=== PATIENT | female | born 1990 | race Two or more races ===

== ENCOUNTER 2016-12-15 11:07 | Emergency (ER) | payer SELFPAY ==
[2016-12-15] MEDS ORDERED: AMOXICILLIN TR/POT CLAVULANATE 500-125 MG TAB PO ONE (12:08)
[2016-12-15] MEDS ORDERED: HYDROCODONE/ACETAMINOPHEN 5-325 MG TABLET PO ONE (12:08)
[2016-12-15] MEDS ORDERED: DIPH/PERTUSS(ACELL)/TETANUS VAC/PF 0.5 ML SYR (>=10YO) IM ONE (12:08)
[2016-12-15] MEDS ORDERED: LIDOCAINE 1% INJ-PF (10 MG/ML) 30 ML SDV INJ ONE (12:15)
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
[2016-12-15 14:24] VITALS: BP 114/69
== END 2016-12-15 14:24 | disposition home or self-care (01) ==
LOC: ER 11:07
PROC: 0CQ0XZZ Repair Upper Lip, External Approach (ICD-10-PCS; principal; 2016-12-15)
DX: S01.511A Laceration without foreign body of lip, initial encounter (principal); S01.512A Laceration without foreign body of oral cavity, initial encounter; W50.0XXA Accidental hit or strike by another person, initial encounter; F17.200 Nicotine dependence, unspecified, uncomplicated
CPT/HCPCS: 99283; 90471; 90715; 12011; J3490

== ENCOUNTER 2017-03-09 15:56 | Emergency (ER) | payer SELFPAY ==
[2017-03-09 16:01] VITALS: BP 111/85
--- NOTE | 2017-03-09 16:10 | ER Document Report ---
ED GI/ - General Chief Complaint: Urinary Problem Stated Complaint: URINARY ISSUES Time Seen by Provider: 03/09/17 16:05 Mode of Arrival: Ambulatory Information source: Patient TRAVEL OUTSIDE OF THE [place] IN LAST 30 DAYS: No - HPI Patient complains to provider of: Dysuria, Vaginal discharge Onset: Other - 2 WEEKS Timing/Duration: Gradual, Persistent, Worse Quality of pain: Achy, Burning Severity at maximum: Moderate Severity in ED: Moderate Pain Level: 3 Location: Suprapubic, Pelvis Associated symptoms: Dysuria, Urinary frequency, Vaginal discharge Exacerbated by: Denies Relieved by: Denies Similar symptoms previously: Yes Recently seen / treated by doctor: No Notes: 03/09/17 16:11 Patient is a 26-year-old female presenting to the emergency room complaining of 2 week history of dysuria with urinary frequency and vaginal discharge consistent with UTI and bacterial vaginosis that she has had in the past, states that her significant other is uncircumcised and therefore she frequently gets these infections, denies being , no nausea, vomiting or diarrhea, no fever or chills - Related Data Allergies/Adverse Reactions: No Known Allergies Allergy (Verified 03/09/17 16:01) Past Medical History - General Information source: Patient - Social History Smoking Status: Unknown if Ever Smoked Family History: Reviewed & Not Pertinent Renal/ Medical History: Denies: Hx Peritoneal Dialysis - Immunizations Hx Diphtheria, Pertussis, Tetanus Vaccination: Yes - received 2010 Review of Systems - Review of Systems Constitutional: No symptoms reported EENT: No symptoms reported Cardiovascular: No symptoms reported Respiratory: No symptoms reported Gastrointestinal: No symptoms reported Genitourinary: See HPI Female Genitourinary: See HPI Musculoskeletal: No symptoms reported Skin: No symptoms reported Hematologic/Lymphatic: No symptoms reported Neurological/Psychological: No symptoms reported -: Yes All other systems reviewed and negative Physical Exam - Vital signs Vitals: Temp Pulse Resp BP Pulse Ox 98.8 F 94 16 111/85 99 03/09/17 16:00 03/09/17 16:00 03/09/17 16:00 03/09/17 16:00 03/09/17 16:00 - Notes Notes: - General General appearance: Appears well, Alert In distress: None - HEENT Head: Normocephalic, Atraumatic Eyes: Normal Conjunctiva: Normal Extraocular movements intact: Yes Eyelashes: Normal Pupils: PERRL - Respiratory Respiratory status: No respiratory distress - Cardiovascular Rhythm: Regular - Abdominal Inspection: Normal - Back Back: Normal - Extremities General upper extremity: Normal inspection General lower extremity: Normal inspection - Neurological Neuro grossly intact: Yes Orientation: AAOx4 [place] Coma Scale Eye Opening: Spontaneous [place] Coma Scale Verbal: Oriented [place] Coma Scale Motor: Obeys Commands [place] Coma Scale Total: 15 - Psychological Associated symptoms: Normal affect, Normal mood - Skin Skin Temperature: Warm Skin Moisture: Dry Skin Color: Normal Course - Re-evaluation Re-evalutation: 03/09/17 16:12 Patient symptoms are consistent with UTI and bacterial vaginosis which she has had in the past, I did offer to put her in a room work and do a pelvic exam and send a urine sample, however she declined and requested to just be treated for these symptoms because she has had these problems in the past and "I know my body", therefore patient was provided with a prescription for Keflex and Flagyl , advised to follow-up with her primary care provider or return if symptoms worsen, patient acknowledges understanding and agreement with this plan - Vital Signs Vital signs: Temp Pulse Resp BP Pulse Ox 98.8 F 94 16 111/85 99 03/09/17 16:00 03/09/17 16:00 03/09/17 16:00 03/09/17 16:00 03/09/17 16:00 Discharge - Discharge Clinical Impression: Bacterial vaginosis UTI (urinary tract infection) Qualifiers: Urinary tract infection type: site unspecified Hematuria presence: without hematuria Qualified Code(s): N39.0 - Urinary tract infection, site not specified Condition: Stable Disposition: HOME, SELF-CARE Instructions: Urinary Tract Infection ([facility]), Vaginosis, Bacterial ([facility]) Additional Instructions: Follow up with your primary care provider in one to 2 days. Return to the emergency room immediately if symptoms worsen or any additional concerns. Prescriptions: Cephalexin Monohydrate [Keflex 500 mg Capsule] 500 mg PO BID #20 capsule Fluconazole [Diflucan] 150 mg PO ONCE PRN #1 tablet PRN Reason: Metronidazole [Flagyl 500 mg Tablet] 500 mg PO TID #30 tablet
== END 2017-03-09 16:13 | disposition home or self-care (01) ==
LOC: ER 15:56
DX: N76.0 Acute vaginitis (principal); B96.89 Other specified bacterial agents as the cause of diseases classified elsewhere; N39.0 Urinary tract infection, site not specified; R39.198 Other difficulties with micturition; R30.0 Dysuria; R35.0 Frequency of micturition; N89.8 Other specified noninflammatory disorders of vagina
CPT/HCPCS: 99283

== ENCOUNTER 2017-03-24 21:54 | Emergency (ER) | payer SELFPAY ==
[2017-03-24] MEDS ORDERED: ONDANSETRON HCL INJ/PF 4 MG/2 ML SDV IV ONE (23:54)
[2017-03-24] MEDS ORDERED: NORMAL SALINE 1000 ML 1,000 ML IV ONE (23:54)
--- NOTE | 2017-03-24 23:56 | ER Document Report ---
ED GI/ - General Chief Complaint: Nausea/Vomiting/Diarrhea Stated Complaint: VOMITING,DIARRHEA Time Seen by Provider: 03/24/17 23:52 Notes: The patient is a 26-year-old female who presents with 10 hours of nausea, nonbloody, non-bilious vomiting and watery diarrhea. She said that she drank a lot of moonshine yesterday night before this started. Patient denies recent travel, fevers, abdominal pain, hematemesis, blood in stool, urinary symptoms, chest pain or shortness of breath. TRAVEL OUTSIDE OF THE [place] IN LAST 30 DAYS: No - Related Data Allergies/Adverse Reactions: No Known Allergies Allergy (Verified 03/24/17 22:05) Past Medical History - General Information source: Patient - Social History Smoking Status: Unknown if Ever Smoked Family History: Reviewed & Not Pertinent Patient has suicidal ideation: No Patient has homicidal ideation: No Renal/ Medical History: Denies: Hx Peritoneal Dialysis - Immunizations Hx Diphtheria, Pertussis, Tetanus Vaccination: Yes - received 2010 Review of Systems - Review of Systems Notes: REVIEW OF SYSTEMS: CONSTITUTIONAL: -fevers, -chills EENT: -eye pain, -difficulty swallowing, -nasal congestion CARDIOVASCULAR:-chest pain, -syncope. RESPIRATORY: -cough, -SOB GASTROINTESTINAL: -abdominal pain, +nausea, +vomiting, +diarrhea GENITOURINARY: -dysuria, -hematuria MUSCULOSKELETAL: -back pain, -neck pain SKIN: -rash or skin lesions. HEMATOLOGIC: -easy bruising or bleeding. LYMPHATIC: -swollen, enlarged glands. NEUROLOGICAL: -altered mental status or loss of consciousness, -headache, - neurologic symptoms PSYCHIATRIC: -anxiety, -depression. ALL OTHER SYSTEMS REVIEWED AND NEGATIVE. Physical Exam - Vital signs Vitals: Temp Pulse Resp BP Pulse Ox 98.1 F 95 20 113/69 100 03/24/17 22:03 03/24/17 22:03 03/24/17 22:03 03/24/17 22:03 03/24/17 22:03 - Notes Notes: PHYSICAL EXAMINATION: GENERAL: Well-appearing, well-nourished and in no acute distress. HEAD: Atraumatic, normocephalic. EYES: Pupils equal round and reactive to light, extraocular movements intact, sclera anicteric, conjunctiva are normal. ENT: nares patent, oropharynx clear without exudates. Moist mucous membranes. NECK: Normal range of motion, supple without lymphadenopathy LUNGS: Breath sounds clear to auscultation bilaterally and equal. No wheezes rales or rhonchi. HEART: Regular rate and rhythm without murmurs ABDOMEN: Soft, nontender, normoactive bowel sounds. No guarding, no rebound. No masses appreciated. EXTREMITIES: Normal range of motion, no pitting or edema. No cyanosis. NEUROLOGICAL: Cranial nerves grossly intact. Normal speech, normal gait. Normal sensory and motor exams. PSYCH: Normal mood, normal affect. SKIN: Warm, Dry, normal turgor, no rashes or lesions noted. Course - Re-evaluation Re-evalutation: Patient with absolutely no abdominal tenderness. She is drinking fluids in the emergency room after Zofran without nausea or vomiting. No other episodes of diarrhea while in the ER. Her labs and urine are unremarkable. Will send patient home with Zofran instructions to keep hydrated. - Vital Signs Vital signs: Temp Pulse Resp BP Pulse Ox 98.1 F 95 20 113/69 100 03/24/17 22:03 03/24/17 22:03 03/24/17 22:03 03/24/17 22:03 03/24/17 22:03 - Laboratory Result Diagrams: 03/24/17 23:55 03/24/17 23:55 Laboratory results interpreted by me: 03/24/17 03/24/17 23:55 23:55 Hgb 11.4 L Hct 35.6 L MCH 25.5 L MCHC 31.9 L RDW 18.3 H Seg Neutrophils % 87.6 H Lymphocytes % 8.1 L Sodium 146.2 H Chloride 110 H Discharge - Discharge Clinical Impression: Nausea, vomiting and diarrhea Condition: Stable Disposition: HOME, SELF-CARE Additional Instructions: VOMITING: Vomiting (or nausea without vomiting) can be caused by many other different problems. It can mean that something's wrong with the stomach, such as ulcers or inflammation or the intestinal tract, such as appendicitis. But it can also be a symptom of a problem that has nothing to do with the stomach or intestines. Vomiting is common with severe headaches, earaches, tonsillitis, and kidney infections, etc. We see it with pneumonia or heart attacks. Drugs can cause nausea and vomiting. Many abdominal problems cause vomiting; for example, gallstones, kidney stones, pancreatitis, and intestinal obstruction ( blocked bowels). In most cases, curing the vomiting depends on fixing the problem that caused it. For temporary relief, we may use an anti-nausea medicine. For home use, we can prescribe suppositories, chewable pills, pills that dissolve in the mouth, or liquid anti-nausea drugs. If the vomiting seems to be caused by a problem in the stomach, acid-suppressing drugs may be prescribed as well. It's important to avoid dehydration. Sip small amounts of clear liquids ( soft drinks, tea, broth, etc) . Try to take fluids frequently even if you are vomiting to prevent dehydration. Take increasing amounts of fluid and when liquids are being consumed successfully, advance to small amounts of bland food (toast, soups, mashed potatoes, etc.) until you are able to resume a regular diet. Avoid aspirin, tobacco, and alcohol. If the vomiting worsens, if the problem that's making you vomit worsens, or if there's evidence of bleeding in the stomach (such as black, tarry stool, or bloody or black vomit), you should return immediately. Also, return if abdominal pain worsens or becomes localized to one area or you develop high fever. Call your doctor if you aren't improved in 24 hours. DIARRHEA, NON-SPECIFIC: Diarrhea means frequent, watery stools. There are many causes. Any problem that keeps the intestinal tract from absorbing water from the stool can lead to diarrhea. A sudden new diarrhea problem is usually caused by a virus, food sensitivity, toxic bacteria, or drugs. In this case, we expect the problem to go away soon. Testing is done only if you seem seriously ill from the diarrhea. If you have chronic diarrhea, or diarrhea that keeps coming back, we need to find out why. Chronic diarrhea can be due to inflammation of the bowels such as Crohn's disease or ulcerative colitis, food sensitivity such as intolerance to lactose or wheat protein, irritable bowel syndrome, and other problems. If your diarrhea is a significant problem but it's not clear why you have it, we' ll refer you to a specialist for further testing. During an episode of diarrhea, drink small amounts (two to six ounces) of clear liquids (soft drinks, sport drinks, herb teas, broth, etc). Take fluids frequently to prevent dehydration. It's usually not a problem to take mild anti- diarrhea medication such as Kaopectate or Pepto-Bismol. As the diarrhea eases, advance to small amounts of bland food (mashed potato, toast) for 24 hours. Call the physician if blood appears in your vomit or stool, if vomiting lasts longer than 24 hours, if the abdominal pain worsens or becomes localized to one area, if you develop high fever, or if you become lightheaded and weak. VIRAL SYNDROME: The physician has diagnosed a viral infection. Viruses not only cause "colds," but can cause many different symptoms including generalized aching, fever, headache, cough, diarrhea, nausea, vomiting, and fatigue. The treatment, for the most part, is simply relief of symptoms. This means that antibiotics are usually not given. Rest, fluids, pain medications and, occasionally, medication for the specific symptoms that are most bothersome will be prescribed. Use good handwashing to avoid passing the virus to others. Shared toys should be cleaned with disinfectant. Clean the toilets, sinks, and counter surfaces in bathrooms. Launder clothing in hot water. Contact the physician if you develop any new or unusual symptoms such as severe headache, stiff neck, high fever, chest pain, productive cough, or shortness of breath. You should be rechecked if you don't see marked improvement within seven to 10 days. ANTINAUSEA MEDICATION: You have been given a medication to suppress nausea and vomiting. This type of medication can be given as a shot, pill, or suppository. It will usually last for many hours. Pills and shots usually last six to eight hours. For the typical illness, only one or two doses of the medication may be necessary. Mild lightheadedness may occur. This type of medicine can cause drowsiness. Do not drive or operate dangerous machinery while under its influence. Do not mix with alcohol. See your doctor at once if you have muscle spasms or tightness, or uncontrollable motions (particularly of the neck, mouth, or jaw). Persistent vomiting or severe lightheadedness should also be evaluated by the physician. FOLLOW-UP CARE: If you have been referred to a physician for follow-up care, call the physician s office for an appointment as you were instructed or within the next two days. If you experience worsening or a significant change in your symptoms, notify the physician immediately or return to the Emergency Department at any time for re-evaluation. Prescriptions: Ondansetron [Zofran Odt 4 mg Tablet] 1 - 2 tab PO Q4H PRN #15 tab.rapdis PRN Reason: For Nausea/Vomiting
[2017-03-25] MEDS ORDERED: ONDANSETRON 4 MG TAB.RAPDIS PO ONE (00:04)
[2017-03-25 00:18] LABS: ABSOLUTE LYMPHOCYTES (AUTO) 0.7 10^3/uL (0.5-4.7); ABSOLUTE MONOCYTES (AUTO) 0.4 10^3/uL (0.1-1.4); BASOPHILS % (AUTO) 0.4 % (0-2); HEMATOCRIT 35.6 % (36.0-47.0); HEMOGLOBIN 11.4 g/dL (12.0-15.5); HGB HCT DIFFERENCE -1.4; LYMPHOCYTES % (AUTO) 8.1 % (13-45); MEAN CORPUSCULAR HEMOGLOBIN 25.5 pg (27.0-33.4); MEAN CORPUSCULAR HGB CONC 31.9 g/dL (32.0-36.0); MEAN CORPUSCULAR VOLUME 80 fl (80-97); MONOCYTES % (AUTO) 3.9 % (3-13); RED BLOOD COUNT 4.47 10^6/uL (3.72-5.28); RED CELL DISTRIBUTION WIDTH 18.3 % (11.5-14.0); SEGMENTED NEUTROPHILS % (AUTO) 87.6 % (42-78); WHITE BLOOD COUNT 9.2 10^3/uL (4.0-10.5)
[2017-03-25 00:25] LABS: ALANINE AMINOTRANSFERASE 27 U/L (9-52); ALBUMIN 4.4 g/dL (3.5-5.0); ALKALINE PHOSPHATASE 58 U/L (38-126); ANION GAP 13 (5-19); ASPARTATE AMINO TRANSFERASE 29 U/L (14-36); BILIRUBIN,DIRECT 0.3 mg/dL (0.0-0.4); BILIRUBIN,TOTAL 0.4 mg/dL (0.2-1.3); BLOOD UREA NITROGEN 8 mg/dL (7-20); CALCIUM 9.9 mg/dL (8.4-10.2); CARBON DIOXIDE 23 mmol/L (22-30); CHLORIDE 110 mmol/L (98-107); CREATININE RESULT 0.66 mg/dL (0.52-1.25); GLUCOSE 97 mg/dL (75-110); SODIUM 146.2 mmol/L (137-145); TOTAL PROTEIN 7.8 g/dL (6.3-8.2)
[2017-03-25 01:34] VITALS: BP 117/75
[2017-03-25 01:45] LABS: URINE BARBITURATES SCREEN NEGATIVE; URINE METHADONE SCREEN NEGATIVE; URINE OPIATES LOW NEGATIVE; URINE PHENCYCLIDINE SCREEN NEGATIVE
== END 2017-03-25 01:34 | disposition home or self-care (01) ==
LOC: ER 21:54
DX: R11.2 Nausea with vomiting, unspecified (principal); R19.7 Diarrhea, unspecified
CPT/HCPCS: 99284; 36415; 83690; 85025; 81025; 80053; 80307; S0119

== ENCOUNTER 2017-05-26 22:07 | Emergency (ER) | payer SELFPAY ==
--- NOTE | 2017-05-26 23:23 | ER Document Report ---
ED GI/ - General Chief Complaint: Pelvic Pain Stated Complaint: PELVIC PAIN Time Seen by Provider: 05/26/17 23:16 Notes: The patient is a 26-year-old female who presents with 15 days of menstrual bleeding and cramping. She has had this multiple times in the past. She denies syncope, urinary symptoms, abdominal pain, diarrhea, constipation or . TRAVEL OUTSIDE OF THE [place] IN LAST 30 DAYS: No - Related Data Allergies/Adverse Reactions: No Known Allergies Allergy (Verified 03/24/17 22:05) Past Medical History - General Information source: Patient - Social History Smoking Status: Unknown if Ever Smoked Drug Abuse: Cocaine Family History: Reviewed & Not Pertinent Patient has suicidal ideation: No Patient has homicidal ideation: No Renal/ Medical History: Denies: Hx Peritoneal Dialysis - Immunizations Hx Diphtheria, Pertussis, Tetanus Vaccination: Yes - received 2010 Review of Systems - Review of Systems Notes: REVIEW OF SYSTEMS: CONSTITUTIONAL: -fevers, -chills EENT: -eye pain, -difficulty swallowing, -nasal congestion CARDIOVASCULAR:-chest pain, -syncope. RESPIRATORY: -cough, -SOB GASTROINTESTINAL: -abdominal pain, - nausea, -vomiting, -diarrhea GENITOURINARY: -dysuria, -hematuria, +vaginal bleeding MUSCULOSKELETAL: -back pain, -neck pain SKIN: -rash or skin lesions. HEMATOLOGIC: -easy bruising or bleeding. LYMPHATIC: -swollen, enlarged glands. NEUROLOGICAL: -altered mental status or loss of consciousness, -headache, - neurologic symptoms PSYCHIATRIC: -anxiety, -depression. ALL OTHER SYSTEMS REVIEWED AND NEGATIVE. Physical Exam - Vital signs Vitals: Temp Pulse Resp BP Pulse Ox 99.0 F 88 20 113/73 100 05/26/17 22:27 05/26/17 22:27 05/26/17 22:27 05/26/17 22:27 05/26/17 22:27 - Notes Notes: PHYSICAL EXAMINATION: GENERAL: Well-appearing, well-nourished and in no acute distress. HEAD: Atraumatic, normocephalic. EYES: Pupils equal round and reactive to light, extraocular movements intact, sclera anicteric, conjunctiva are normal. ENT: nares patent, oropharynx clear without exudates. Moist mucous membranes. NECK: Normal range of motion, supple without lymphadenopathy LUNGS: Breath sounds clear to auscultation bilaterally and equal. No wheezes rales or rhonchi. HEART: Regular rate and rhythm without murmurs ABDOMEN: Soft, nontender, normoactive bowel sounds. No guarding, no rebound. No masses appreciated. : No active vaginal bleeding. Closed cervical os. EXTREMITIES: Normal range of motion, no pitting or edema. No cyanosis. NEUROLOGICAL: Cranial nerves grossly intact. Normal speech, normal gait. Normal sensory and motor exams. PSYCH: Normal mood, normal affect. SKIN: Warm, Dry, normal turgor, no rashes or lesions noted. Course - Re-evaluation Re-evalutation: Patient is hemodynamically stable. No active bleeding on exam. She is not and not anemic. Will discharge patient home with follow-up at gynecology. - Vital Signs Vital signs: Temp Pulse Resp BP Pulse Ox 99.0 F 88 20 113/73 100 05/26/17 22:27 05/26/17 22:27 05/26/17 22:27 05/26/17 22:27 05/26/17 22:27 - Laboratory Laboratory results interpreted by me: 05/26/17 23:40 Urine Blood MODERATE H Ur Leukocyte Esterase TRACE H Discharge - Discharge Clinical Impression: Vaginal bleeding Condition: Stable Disposition: HOME, SELF-CARE Additional Instructions: VAGINAL BLEEDING: You are having an episode of abnormal bleeding. Causes of abnormal vaginal bleeding can include miscarriage or tubal , tumors such as cancer or benign fibroids, medication effects, or hormone imbalance. Testing can eliminate unsuspected , tumors, or infection as a cause. "Dysfunctional uterine bleeding" is due to hormone imbalance, and is especially common at times when the normal cycle is disturbed -- whether by recent , use of control pills or hormones, or impending menopause. If the bleeding is innocent, most commonly a short course of hormones is given to restore the uterus to normal. Sometimes, the normal menstrual cycle corrects itself naturally. Sometimes , brief hormone therapy, or even a D&C is required. Your physician will advise you. Treatment for anemia may be required if bleeding is severe. You should rest and avoid intercourse until the bleeding is controlled. Call the doctor or return for re-examination if you feel faint, have increasing pain, or have a major increase in the amount of bleeding. NORMAL EXAM AND WORKUP: At this time, except for vaginal bleeding, your examination and workup show no significant abnormality. No significant abnormal physical findings were noted. All laboratory, EKG, and imaging (x-ray, CT scans, ultrasound) studies that were ordered show no significant abnormality. Although your examination and all studies that were ordered showed no significant abnormal finding, there are no examinations and no studies that are 100% accurate. There is always the possibility that some abnormality could exist and not be detected with physical examination or within the limits and capabilities of laboratory and other studies. You should return or follow up as you were instructed on your visit today for further evaluation if your symptoms do not resolve. FOLLOW-UP CARE: If you have been referred to a physician for follow-up care, call the physician s office for an appointment as you were instructed or within the next two days. If you experience worsening or a significant change in your symptoms (very heavy bleeding with large clots of blood, passage of tissue, more severe abdominal / pelvic pain or cramping, feeling faint or severe weakness, fever, etc.), notify the physician immediately or return to the Emergency Department at any time for re-evaluation. OBSTETRIC-GYNECOLOGIC (OB-SALES CORRESPONDENT) PHYSICIANS [facility] [place]: [facility] [address] [place], [place] [phone] [facility] [address], [place] [phone] Referrals: CRYS RODRIGUEZ, [EWA COSTA] - Follow up as needed
[2017-05-26 23:57] LABS: APPEARANCE,URINE CLEAR; BILIRUBIN,URINE NEGATIVE (NEGATIVE); GLUCOSE, URINE NEGATIVE (NEGATIVE); KETONES,URINE NEGATIVE (NEGATIVE); LEUKOCYTE ESTERASE,URINE TRACE (NEGATIVE); NITRITE,URINE NEGATIVE (NEGATIVE); PROTEIN,URINE NEGATIVE (NEGATIVE); URINE SPECIFIC GRAVITY 1.023; UROBILINOGEN,URINE NEGATIVE mg/dL (<2.0)
[2017-05-27 00:19] LABS: ABSOLUTE EOSINOPHILS # (AUTO) 0.1 10^3/uL (0.0-0.6); ABSOLUTE LYMPHOCYTES (AUTO) 2.4 10^3/uL (0.5-4.7); ABSOLUTE MONOCYTES (AUTO) 0.6 10^3/uL (0.1-1.4); ABSOLUTE NEUT (AUTO) 3.7 10^3/uL (1.7-8.2); BASOPHILS % (AUTO) 0.5 % (0-2); EOSINOPHILS % (AUTO) 0.9 % (0-6); HEMATOCRIT 36.8 % (36.0-47.0); HEMOGLOBIN 12.1 g/dL (12.0-15.5); HGB HCT DIFFERENCE -0.5; LYMPHOCYTES % (AUTO) 35.3 % (13-45); MEAN CORPUSCULAR HGB CONC 32.8 g/dL (32.0-36.0); MEAN CORPUSCULAR VOLUME 79 fl (80-97); MONOCYTES % (AUTO) 9.2 % (3-13); RED BLOOD COUNT 4.65 10^6/uL (3.72-5.28); RED CELL DISTRIBUTION WIDTH 16.4 % (11.5-14.0); SEGMENTED NEUTROPHILS % (AUTO) 54.1 % (42-78); WHITE BLOOD COUNT 6.9 10^3/uL (4.0-10.5)
[2017-05-27 00:37] VITALS: BP 110/69
== END 2017-05-27 00:16 | disposition home or self-care (01) ==
LOC: ER 22:07
DX: N93.8 Other specified abnormal uterine and vaginal bleeding (principal); R10.2 Pelvic and perineal pain
CPT/HCPCS: 36415; 81001; 81025; 85025; 99284

== ENCOUNTER 2018-05-17 18:50 | Emergency (ER) | payer SELFPAY ==
--- NOTE | 2018-05-17 19:06 | ER Document Report ---
ED Medical Screen (RME) - General Chief Complaint: Vertigo Stated Complaint: RINGING IN EAR Time Seen by Provider: 05/17/18 19:04 Mode of Arrival: Ambulatory Information source: Patient TRAVEL OUTSIDE OF THE [place] IN LAST 30 DAYS: No - HPI Patient complains to provider of: tinnitus; pelvic cramping Onset: Other - Pt is G4, approx 6 wks , with c/o pelvic cramps and tinnitus in L ear - Related Data Allergies/Adverse Reactions: No Known Allergies Allergy (Verified 03/24/17 22:05) Past Medical History Renal/ Medical History: Denies: Hx Peritoneal Dialysis - Immunizations Hx Diphtheria, Pertussis, Tetanus Vaccination: Yes - received 2010 Physical Exam - Vital signs Vitals: Temp Pulse Resp BP Pulse Ox 98.5 F 89 18 115/64 100 05/17/18 18:58 05/17/18 18:58 05/17/18 18:58 05/17/18 18:58 05/17/18 18:58 Course - Vital Signs Vital signs: Temp Pulse Resp BP Pulse Ox 98.5 F 89 18 115/64 100 05/17/18 18:58 05/17/18 18:58 05/17/18 18:58 05/17/18 18:58 05/17/18 18:58
--- NOTE | 2018-05-17 19:43 | RADIOLOGY REPORT (SQ) ---
EXAM DESCRIPTION: U/S OB TRANSVAG W/DOPPLER COMPLETED DATE/TIME: 05/17/2018 7:32 pm REASON FOR STUDY: pelvic pain; COMPARISON: None. TECHNIQUE: Transvaginal static and realtime grayscale images acquired of the pelvis. Additional razia cted spectral and color Doppler images recorded. All images stored on PACs. bHCG: Not available. CLINICAL DATES: 6 week 2 day. LIMITATIONS: None. FINDINGS: FETUS: Single Living intrauterine . ULTRASOUND EGA: 6 week 6 day. ULTRASOUND PAM: 01/04/2019. EFW: Not applicable less than 20 weeks. CRL: 0.83 cm. FHR: 132 beats per minute. SURVEY: No visualized anomalies. AMNIOTIC FLUID: Adequate amount. PLACENTA: Not yet developed due to early gestation. SUBCHORIONIC BLEED: Yes. SIZE OF BLEED: 0.7 x 0.8 x 1.7 cm. UTERUS: No masses. No anomalies. CERVICAL LENGTH: 2.4 cm. Closed. RIGHT ADNEXA: Ovary not identified due to poor acoustical window. No adnexal free fluid. No adnexal masses. LEFT ADNEXA: Ovary not identified due to poor acoustical window. No adnexal free fluid. No adnexal masses. FREE FLUID: None. OTHER: No other significant finding. IMPRESSION: LIVING INTRAUTERINE . EGA 6 WEEK 6 DAY. SUBCHORIONIC BLEED. Trimester of : First - 0 to 13 weeks. TECHNICAL DOCUMENTATION: JOB ID: [id number] [employer]- All Rights Reserved rev Reading location - IP/workstation name: [email or web address]
[2018-05-17 20:01] LABS: ABSOLUTE EOSINOPHILS # (AUTO) 0.1 10^3/uL (0.0-0.6); ABSOLUTE LYMPHOCYTES (AUTO) 2.2 10^3/uL (0.5-4.7); ABSOLUTE MONOCYTES (AUTO) 0.8 10^3/uL (0.1-1.4); ABSOLUTE NEUT (AUTO) 4.1 10^3/uL (1.7-8.2); BASOPHILS % (AUTO) 0.4 % (0-2); EOSINOPHILS % (AUTO) 0.7 % (0-6); HEMATOCRIT 32.9 % (36.0-47.0); HEMOGLOBIN 11.1 g/dL (12.0-15.5); LYMPHOCYTES % (AUTO) 30.9 % (13-45); MEAN CORPUSCULAR HEMOGLOBIN 25.8 pg (27.0-33.4); MEAN CORPUSCULAR HGB CONC 33.7 g/dL (32.0-36.0); MEAN CORPUSCULAR VOLUME 77 fl (80-97); MONOCYTES % (AUTO) 10.5 % (3-13); PLATELET COUNT 230 10^3/uL (150-450); RED CELL DISTRIBUTION WIDTH 16.1 % (11.5-14.0); SEGMENTED NEUTROPHILS % (AUTO) 57.5 % (42-78); TOTAL CELLS COUNTED % (AUTO) 100 %; WHITE BLOOD COUNT 7.2 10^3/uL (4.0-10.5)
[2018-05-17 20:10] LABS: ALANINE AMINOTRANSFERASE 23 U/L (9-52); ALBUMIN 4.2 g/dL (3.5-5.0); ALKALINE PHOSPHATASE 46 U/L (38-126); ANION GAP 13 (5-19); ASPARTATE AMINO TRANSFERASE 20 U/L (14-36); BILIRUBIN,DIRECT 0.1 mg/dL (0.0-0.4); BILIRUBIN,TOTAL 0.4 mg/dL (0.2-1.3); BLOOD UREA NITROGEN 9 mg/dL (7-20); CALCIUM 9.7 mg/dL (8.4-10.2); CARBON DIOXIDE 24 mmol/L (22-30); CHLORIDE 102 mmol/L (98-107); GLUCOSE 78 mg/dL (75-110); POTASSIUM 3.9 mmol/L (3.6-5.0); SODIUM 138.6 mmol/L (137-145); TOTAL PROTEIN 7.6 g/dL (6.3-8.2)
[2018-05-17 21:06] LABS: APPEARANCE,URINE CLEAR; BILIRUBIN,URINE NEGATIVE (NEGATIVE); COLOR,URINE STRAW; GLUCOSE, URINE NEGATIVE (NEGATIVE); KETONES,URINE NEGATIVE (NEGATIVE); LEUKOCYTE ESTERASE,URINE TRACE (NEGATIVE); NITRITE,URINE NEGATIVE (NEGATIVE); PROTEIN,URINE NEGATIVE (NEGATIVE); URINE SPECIFIC GRAVITY 1.009; UROBILINOGEN,URINE NEGATIVE mg/dL (<2.0)
--- NOTE | 2018-05-17 21:16 | ER Document Report ---
ED General - General Chief Complaint: Vertigo Stated Complaint: RINGING IN EAR Time Seen by Provider: 05/17/18 19:04 Mode of Arrival: Ambulatory Notes: Patient is a 27-year-old female presenting to the emergency department complaining of suprapubic abdominal pain and left ear ringing. Patient states since after hollowing she has had intermittent in the left ear.. Patient states at times she feels like her ear is clogged and she cannot hear anything out of it. Patient voices no complaints about the right ear. Patient denies URI symptoms or fever. Patient states she does have suprapubic abdominal pain and intermittent dysuria. Patient denies any vaginal bleeding or vaginal discharge at this time. Patient states she just found out she was last week. Patient is not taking any vitamins. Past medical history: Anemia Medications: None Allergies: None Surgical history: None patient denies cigarette smoking, illicit drug use, EtOH use. TRAVEL OUTSIDE OF THE [place] IN LAST 30 DAYS: No - Related Data Allergies/Adverse Reactions: No Known Allergies Allergy (Verified 03/24/17 22:05) Past Medical History - General Information source: Patient - Social History Smoking Status: Former Smoker Chew tobacco use (# tins/day): No Frequency of alcohol use: None Family History: Reviewed & Not Pertinent Patient has suicidal ideation: No Patient has homicidal ideation: No Pulmonary Medical History: Reports: Hx Bronchitis Renal/ Medical History: Denies: Hx Peritoneal Dialysis - Immunizations Hx Diphtheria, Pertussis, Tetanus Vaccination: Yes - received 2010 Review of Systems - Review of Systems Constitutional: No symptoms reported EENT: See HPI Cardiovascular: No symptoms reported Respiratory: No symptoms reported Gastrointestinal: See HPI Genitourinary: See HPI Female Genitourinary: See HPI Musculoskeletal: No symptoms reported Skin: No symptoms reported Hematologic/Lymphatic: No symptoms reported Neurological/Psychological: No symptoms reported Physical Exam - Vital signs Vitals: Temp Pulse Resp BP Pulse Ox 98.5 F 89 18 115/64 100 05/17/18 18:58 05/17/18 18:58 05/17/18 18:58 05/17/18 18:58 05/17/18 18:58 - Notes Notes: GENERAL: Alert, interacts well. No acute distress. HEAD: Normocephalic, atraumatic. EYES: Pupils equal, round, and reactive to light. Extraocular movements intact. ENT: Oral mucosa moist, tongue midline. Nares patent, TM's intact right, cerumen impaction left canal. NECK: Full range of motion. Supple. Trachea midline. LUNGS: Clear to auscultation bilaterally, no wheezes, rales, or rhonchi. No respiratory distress. HEART: Regular rate and rhythm. No murmur ABDOMEN: Soft, non-tender. Non-distended. Bowel sounds present in all 4 quadrants. Minor suprapubic tenderness. EXTREMITIES: Moves all 4 extremities spontaneously. No edema, normal radial and dorsalis pedis pulses bilaterally. No cyanosis. BACK: no cervical, thoracic, lumbar midline tenderness. No saddle anesthesia, normal distal neurovascular exam. NEUROLOGICAL: Alert and oriented x3. Normal speech. cranial nerves II through XII grossly intact. PSYCH: Normal affect, normal mood. SKIN: Warm, dry, normal turgor. No rashes or lesions noted. Course - Re-evaluation Re-evalutation: Discussed with patient at bedside need to use of Debrox for cerumen impaction probably likely cause of tinnitus. Also discussed ultrasound results with patient. Discussed urinary tract infection diagnosis. Will treat with antibiotics. Discussed need to follow-up with primary care and [facility]. Return precautions discussed - Vital Signs Vital signs: Temp Pulse Resp BP Pulse Ox 98.6 F 80 15 125/76 98 05/17/18 22:10 05/17/18 22:10 05/17/18 22:10 05/17/18 22:10 05/17/18 22:10 - Laboratory Result Diagrams: 05/17/18 19:45 05/17/18 19:45 Laboratory results interpreted by me: 05/17/18 05/17/18 05/17/18 19:45 19:45 20:35 Hgb 11.1 L Hct 32.9 L MCV 77 L MCH 25.8 L RDW 16.1 H Beta HCG, Quant 29420.00 H Ur Leukocyte Esterase TRACE H Urine Ascorbic Acid 20 H Discharge - Discharge Clinical Impression: Urinary tract infection Qualifiers: Urinary tract infection type: acute cystitis Hematuria presence: without hematuria Qualified Code(s): N30.00 - Acute cystitis without hematuria Subchorionic bleed Qualifiers: Fetus number: single or unspecified fetus Trimester: first trimester Qualified Code(s): O41.8X10 - Other specified disorders of amniotic fluid and membranes, first trimester, not applicable or unspecified Qualifiers: Weeks of gestation: less than 8 weeks Qualified Code(s): Z3A.01 - Less than 8 weeks gestation of Cerumen impaction Qualifiers: Laterality: left Qualified Code(s): H61.22 - Impacted cerumen, left ear Condition: Stable Disposition: HOME, SELF-CARE Instructions: Cephalexin ([facility]), Urinary Tract Infection ([facility]) Additional Instructions: As we discussed you have been seen and treated in the emergency department for a urinary tract infection. Urinary tract infections in can potentially cause risk which is why I am treating him with antibiotics. Also as we discussed you have is called a subchorionic bleed on her ultrasound. Please partake in pelvic rest until you follow-up with [facility]. Phone numbers are given in this paperwork. Please return to the emergency room should you develop vaginal bleeding, abdominal pain, fever or any worsening symptoms. For the laxatives in your left ear you can buy something [id number] called Debrox. Use as instructed via the box. Prescriptions: Cephalexin Monohydrate [Keflex 500 mg Capsule] 500 mg PO BID 7 Days #14 capsule Referrals: YAIMA LEVINE MD [INSURANCE SALESPERSON] - Follow up as needed
[2018-05-17 22:53] VITALS: BP 125/76
== END 2018-05-17 22:10 | disposition home or self-care (01) ==
LOC: ER 18:50
DX: O26.891 Other specified pregnancy related conditions, first trimester (principal); H61.22 Impacted cerumen, left ear; H93.12 Tinnitus, left ear; O23.11 Infections of bladder in pregnancy, first trimester; O20.8 Other hemorrhage in early pregnancy; Z3A.01 Less than 8 weeks gestation of pregnancy
CPT/HCPCS: 36415; 76817; 80053; 81001; 84702; 85025; 87086; 87088; 87186; 93976; 99284

== ENCOUNTER 2018-07-24 09:21 | Emergency (ER) | payer MEDICAID ==
[2018-07-24 09:50] VITALS: BP 108/68
--- NOTE | 2018-07-24 10:23 | ER Document Report ---
ED Medical Screen (RME) - General Chief Complaint: Anxiety Stated Complaint: POSSIBLE ANXIETY Time Seen by Provider: 07/24/18 10:19 Notes: 27 years old female , presents today with 17 weeks and abdominal cramps. Feeling anxious had a rapid heartbeat last night. Which has subsided. States undergoing a lot of stress. No suicidal or homicidal ideation. TRAVEL OUTSIDE OF THE [place] IN LAST 30 DAYS: No - Related Data Allergies/Adverse Reactions: No Known Allergies Allergy (Verified 07/24/18 09:23) Past Medical History Pulmonary Medical History: Reports: Hx Bronchitis Renal/ Medical History: Denies: Hx Peritoneal Dialysis - Immunizations Hx Diphtheria, Pertussis, Tetanus Vaccination: Yes - received 2010 Physical Exam - Vital signs Vitals: Temp Pulse Resp BP Pulse Ox 98.7 F 97 16 108/68 100 07/24/18 09:49 07/24/18 09:49 07/24/18 09:49 07/24/18 09:49 07/24/18 09:49 Course - Vital Signs Vital signs: Temp Pulse Resp BP Pulse Ox 98.7 F 97 16 108/68 100 07/24/18 09:49 07/24/18 09:49 07/24/18 09:49 07/24/18 09:49 07/24/18 09:49 Doctor's Discharge - Discharge Instructions: Anxiety ([facility])
--- NOTE | 2018-07-24 11:47 | PSYCHOLOGICAL NOTE ---
Psych Note - Psych Note Date seen by psych provider: 07/24/18 Time seen by psych provider: 11:15 Psych Note: Reason for Consult: anxiety 27 years old female presents today with 17 weeks with abdominal cramps. Feeling anxious had a rapid heartbeat last night. Patient disclosed that her friend brought her to [facility] ED because she was having pain in her chest and abdomen and really bad anxiety. She reports that last night she had a panic attack that lasted 3 hours; "I was trying everything even taking a bath and nothing seemed to call me down." She confirms she is no longer feeling anxious however was hoping to ensure that it does not happen again. She reports that she was on medication approximately 10 years ago and remembers only Ambien and Depakote however cannot remember any other medication or amounts. She confirms she is currently 17 weeks and has an appointment tomorrow with the health department. She reports that she was just granted Medicaid so will be setting up providers. Patient is alert and orientated to person, place, time and circumstance. Mood is euthymic with congruent affect. Patient denies suicidal and homicidal ideation. Delusions are absent behaviors congruent with an intact reality based presentation i.e. organized and linear thought process. Eye contact is well- maintained. Conversational speech is within normal rate, tone and prosody. Intellectual abilities appear to be within the average range. Attention and concentration are good. Insight, judgment, impulse control are good. No medication recommendations at this time 300.00 (F41.9) unspecified anxiety disorder per history provided by patient Impression\\plan: Patient is cleared from acute psychiatric services. Patient discloses having a panic attack last night that last 3 hours. She confirms that she has been on medication in the past however has not been on medication for the last 10 years. Clinician provided psychoeducation. Patient has an upcoming appointment and confirms she will be requesting a referral for mental health and OBGyn. Patient was provided local resource list of area providers including mobile crisis contact information. Dr. Dixon was consulted on the care and management of this patient; attending physician is in agreement with recommendations and disposition.
--- NOTE | 2018-07-24 12:14 | ER Document Report ---
ED General - General Chief Complaint: Anxiety Stated Complaint: POSSIBLE ANXIETY Time Seen by Provider: 07/24/18 10:19 Mode of Arrival: Ambulatory Information source: Patient Notes: Patient presents to the emergency department with complaints of abdominal cramps and feeling anxious. Also reports she had a rapid heartbeat last night. Denies rapid heartbeat today. Reports she is under a lot of stress denies suicidal or homicidal eye deviation. Patient is . Denies fever vomiting diarrhea. Denies vaginal discharge. Denies vaginal bleeding. Patient has not had any type of care TRAVEL OUTSIDE OF THE [place] IN LAST 30 DAYS: No - HPI Onset: Yesterday Onset/Duration: Persistent Quality of pain: No pain Associated symptoms: None Exacerbated by: Denies Relieved by: Denies Similar symptoms previously: No Recently seen / treated by doctor: No - Related Data Allergies/Adverse Reactions: No Known Allergies Allergy (Verified 07/24/18 09:23) Past Medical History - General Information source: Patient Last Menstrual Period: 17 weeks preg - Social History Smoking Status: Never Smoker Chew tobacco use (# tins/day): No Frequency of alcohol use: None Drug Abuse: None Family History: Reviewed & Not Pertinent Patient has suicidal ideation: No Patient has homicidal ideation: No Pulmonary Medical History: Reports: Hx Bronchitis Renal/ Medical History: Denies: Hx Peritoneal Dialysis Psychiatric Medical History: Reports: Hx Depression - and anxiety - Immunizations Hx Diphtheria, Pertussis, Tetanus Vaccination: Yes - received 2010 Review of Systems - Review of Systems Notes: Review HPI for review of systems., All other systems negative Physical Exam - Vital signs Vitals: Temp Pulse Resp BP Pulse Ox 98.7 F 97 16 108/68 100 07/24/18 09:49 07/24/18 09:49 07/24/18 09:49 07/24/18 09:49 07/24/18 09:49 - General General appearance: Appears well, Alert, Anxious In distress: None - HEENT Head: Normocephalic Extraocular movements intact: Yes Mouth/Lips: Normal Mucous membranes: Normal Neck: Supple - Respiratory Respiratory status: No respiratory distress Chest status: Nontender Breath sounds: Normal Chest palpation: Normal - Cardiovascular Rhythm: Regular Heart sounds: Normal auscultation Murmur: No - Abdominal Inspection: Normal, Gravid female Distension: No distension Tenderness: Nontender - Back Back: Normal, Nontender - Extremities General upper extremity: Normal ROM General lower extremity: Normal ROM - Neurological Neuro grossly intact: Yes Cognition: Normal Orientation: AAOx4 Yamila Coma Scale Eye Opening: Spontaneous Yamila Coma Scale Verbal: Oriented Goehner Coma Scale Motor: Obeys Commands Yamila Coma Scale Total: 15 Speech: Normal - Psychological Associated symptoms: Normal affect - Skin Skin Temperature: Warm Skin Moisture: Dry Skin Color: Normal Course - Re-evaluation Re-evalutation: 07/24/18 Ultrasound benign. Patient was instructed on ultrasound. She was also evaluated by mental health. She reports she has an appointment with her health department next week. She was instructed to return here for any concerns worsening symptoms. Dictation of this chart was performed using voice recognition software; therefore, there may be some unintended grammatical errors. - Vital Signs Vital signs: Temp Pulse Resp BP Pulse Ox 98.7 F 97 16 108/68 100 07/24/18 09:49 07/24/18 09:49 07/24/18 09:49 07/24/18 09:49 07/24/18 09:49 - Laboratory Laboratory results interpreted by me: 07/24/18 10:50 Beta HCG, Quant 63390.00 H - Diagnostic Test Radiology reviewed: Image reviewed, Reports reviewed - EXAM DESCRIPTION: U/S OB 14+ TRNABD 1GES W/O DOP COMPLETED DATE/TIME: 07/24/2018 12:00 pm REASON FOR STUDY: and abdominal cramp COMPARISON: None. TECHNIQUE: Static and Dynamic grayscale imaging performed of gravid uterus using transabdominal approach. Additional selected color Doppler and spectral images recorded. All stored on PACS. LIMITATIONS: Limited visualization of anatomy. FINDINGS: FETUSES SEEN:1 EGA: 16 weeks 3 days Calculated using BPD,FL,HC,AC documented on images. No discrepancy with clinical dates. PAM: 01/05/2019 EFW: 154 grams PERCENTILE: Not applicable. Fetus less than or equal to 20 weeks gestation. JULIEN: 5.8 PLACENTA: Posterior. GRADE: I PRESENTATION: Variable. ANATOMY: HEART RATE: 145 beats per minute. FOUR CHAMBER HEART: Not visualized. THREE VESSEL CORD: Not visualized. CORD INSERTION: Visualized. KIDNEYS AND BLADDER: Bladder not visualized. STOMACH: Visualized. Appears normal. SPINE: Normal as visualized. BRAIN AND LATERAL VENTRICLES: Visualized. Appear normal. OTHER: No other significant finding. MATERNAL ADNEXA: Maternal ovaries not visualized. CERVICAL LENGTH: Not measured. OTHER: No other significant finding. IMPRESSION: LIVING INTRAUTERINE . ESTIMATED GESTATIONAL AGE 16 weeks 3 days. NO VISUALIZED ANOMALIES. Trimester of : Second trimester - 13 weeks 1 day to 27 weeks 6 days. Discharge - Discharge Clinical Impression: Anxiety, Abdominal cramps Qualifiers: Weeks of gestation: 16 weeks Qualified Code(s): Z3A.16 - 16 weeks gestation of Condition: Stable Disposition: HOME, SELF-CARE Instructions: Anxiety ([facility]), [facility], ([facility]), [facility] ([facility]) Additional Instructions: *You have been evaluated for anxiety, abdominal cramps, *Follow up with the health department tomorrow as scheduled *Return to ED for worsening condition, changes, needs *Return to ED if not better in 24 hours
--- NOTE | 2018-07-24 12:19 | RADIOLOGY REPORT (SQ) ---
EXAM DESCRIPTION: U/S OB 14+ TRNABD 1GES W/O DOP COMPLETED DATE/TIME: 07/24/2018 12:00 pm REASON FOR STUDY: and abdominal cramp COMPARISON: None. TECHNIQUE: Static and Dynamic grayscale imaging performed of gravid uterus using transabdominal appr oac. Additional selected color Doppler and spectral images recorded. All stored on PACS. LIMITATIONS: Limited visualization of anatomy. FINDINGS: FETUSES SEEN:1 EGA: 16 weeks 3 days Calculated using BPD,FL,HC,AC documented on images. No discrepancy with clinica l dates. PAM: 01/05/2019 EFW: 154 grams PERCENTILE: Not applicable. Fetus less than or equal to 20 weeks gestation. JULIEN: 5.8 PLACENTA: Posterior. GRADE: I PRESENTATION: Variable. ANATOMY: HEART RATE: 145 beats per minute. FOUR CHAMBER HEART: Not visualized. THREE VESSEL CORD: Not visualized. CORD INSERTION: Visualized. KIDNEYS AND BLADDER: Bladder not visualized. STOMACH: Visualized. Appears normal. SPINE: Normal as visualized. BRAIN AND LATERAL VENTRICLES: Visualized. Appear normal. OTHER: No other significant finding. MATERNAL ADNEXA: Maternal ovaries not visualized. CERVICAL LENGTH: Not measured. OTHER: No other significant finding. IMPRESSION: LIVING INTRAUTERINE . ESTIMATED GESTATIONAL AGE 16 weeks 3 days. NO VISUALIZED ANOMALIES. Trimester of : Second trimester - 13 weeks 1 day to 27 weeks 6 days. TECHNICAL DOCUMENTATION: JOB ID: [id number] [employer]- All Rights Reserved Reading location - IP/workstation name: [email or web address]
== END 2018-07-24 12:33 | disposition home or self-care (01) ==
LOC: ER 09:21
DX: O26.92 Pregnancy related conditions, unspecified, second trimester (principal); R41.9 Unspecified symptoms and signs involving cognitive functions and awareness; Z3A.17 17 weeks gestation of pregnancy; R10.84 Generalized abdominal pain
CPT/HCPCS: 36415; 76805; 84702; 99285

== ENCOUNTER 2018-12-06 21:56 | Outpatient (CLI) | payer MEDICAID ==
[2018-12-06 22:37] LABS: BACTERIA (WET MOUNT) 3+ BACTERIA SEEN; EPITHELIALS (WET MOUNT) 3+ EPITHELIALS SEEN; RBCS (WET MOUNT) 1+ RBCS SEEN; T.VAGINALIS (WET MOUNT) NO TRICHOMONAS SEEN; WBCS (WET MOUNT) 1+ WBCS SEEN; YEAST (WET MOUNT) NO YEAST SEEN
[2018-12-06 22:39] LABS: APPEARANCE,URINE CLEAR; BILIRUBIN,URINE NEGATIVE (NEGATIVE); COLOR,URINE STRAW; GLUCOSE, URINE NEGATIVE (NEGATIVE); KETONES,URINE NEGATIVE (NEGATIVE); LEUKOCYTE ESTERASE,URINE NEGATIVE (NEGATIVE); NITRITE,URINE NEGATIVE (NEGATIVE); PROTEIN,URINE NEGATIVE (NEGATIVE); URINE SPECIFIC GRAVITY 1.004; UROBILINOGEN,URINE NEGATIVE mg/dL (<2.0)
[2018-12-06 22:48] LABS: URINE AMPHETAMINES SCREEN NEGATIVE; URINE BARBITURATES SCREEN NEGATIVE; URINE BENZODIAZEPINES SCREEN NEGATIVE; URINE COCAINE SCREEN NEGATIVE; URINE MARIJUANA (THC) SCREEN NEGATIVE; URINE METHADONE SCREEN NEGATIVE; URINE PHENCYCLIDINE SCREEN NEGATIVE
--- NOTE | 2018-12-06 23:13 | Non Stress Test Report ---
Non Stress Test Datetime Report Generated by CPN: 12/06/2018 23:12 DEMOGRAPHIC EGA NST: 35.2 INDICATION Indication for Study: Ordered by Provider URINE RESULTS Urine Protein, NST: Negative Urine Ketones - NST: Negative Urine Glucose - NST: Negative Urine Blood - NST: Negative MONITORING Monitor Explained: Monitor Explained; Test Explained; Patient Verbalized Understanding Time on Monitor: 12/06/2018 22:13 Time off Monitor: 12/06/2018 23:02 NST Duration: 49 NST INTERVENTIONS NST Interventions: PO Hydration Physician Notified NST: Magallanes BABY A: [id number] BABY A Movement : Present Contraction Frequency : x1 FHR Baseline : 130 Accelerations : 15X15 Decelerations : Late Variability : Moderate 6-25bpm NST Review: Meets Criteria for Reactive NST NST Review and Verified By : Eugenio Matias RN NST Results: Reactive NST REPORT Report Trigger: Send Report
[2018-12-07 00:10] LABS: CHLAM PCR NOT DETECTED (NOT DETECT); GON PCR NOT DETECTED (NOT DETECT)
== END 2018-12-06 23:12 | disposition home or self-care (01) ==
LOC: LC 21:56
PROVIDERS: ATTEND Student in an Organized Health Care Education/Training Program
PROC: 4A1HXCZ Monitoring of Products of Conception, Cardiac Rate, External Approach (ICD-10-PCS; principal; 2018-12-06)
DX: O36.8330 Maternal care for abnormalities of the fetal heart rate or rhythm, third trimester, not applicable or unspecified (principal); O47.03 False labor before 37 completed weeks of gestation, third trimester; Z3A.35 35 weeks gestation of pregnancy
CPT/HCPCS: 59025; 80307; 81001; 87210; 87491; 87591

== ENCOUNTER 2018-12-18 13:31 | Outpatient (CLI) | payer MEDICAID ==
[~2018-12-18 13:31] MED LIST: FERRIC CARBOXYMALTOSE 750 MG in NORMAL SALINE 250 ML IV PRN
[2018-12-18 13:53] VITALS: BP 113/65
== END 2018-12-18 15:00 | disposition home or self-care (01) ==
LOC: II 13:31 → 5TH 13:52 → II 15:00
PROVIDERS: ATTEND Midwife
PROC: 3E033GC Introduction of Other Therapeutic Substance into Peripheral Vein, Percutaneous Approach (ICD-10-PCS; principal; 2018-12-18)
DX: O99.019 Anemia complicating pregnancy, unspecified trimester (principal)
CPT/HCPCS: 96365; J7050; J1439

== ENCOUNTER 2018-12-24 17:14 | Outpatient (CLI) | payer MEDICAID ==
[2018-12-24 17:50] LABS: APPEARANCE,URINE SLIGHTLY-CLOUDY; BILIRUBIN,URINE NEGATIVE (NEGATIVE); COLOR,URINE YELLOW; GLUCOSE, URINE NEGATIVE (NEGATIVE); KETONES,URINE NEGATIVE (NEGATIVE); LEUKOCYTE ESTERASE,URINE TRACE (NEGATIVE); NITRITE,URINE NEGATIVE (NEGATIVE); PROTEIN,URINE NEGATIVE (NEGATIVE); URINE SPECIFIC GRAVITY 1.006; UROBILINOGEN,URINE NEGATIVE mg/dL (<2.0)
[2018-12-24 18:11] LABS: URINE AMPHETAMINES SCREEN NEGATIVE; URINE BARBITURATES SCREEN NEGATIVE; URINE BENZODIAZEPINES SCREEN NEGATIVE; URINE COCAINE SCREEN NEGATIVE; URINE MARIJUANA (THC) SCREEN NEGATIVE; URINE METHADONE SCREEN NEGATIVE; URINE PHENCYCLIDINE SCREEN NEGATIVE
--- NOTE | 2018-12-24 19:19 | Non Stress Test Report ---
Non Stress Test Datetime Report Generated by CPN: 12/24/2018 19:18 DEMOGRAPHIC EGA NST: 37.6 INDICATION Indication for Study: Ordered by Provider MONITORING Monitor Explained: Monitor Explained; Test Explained; Patient Verbalized Understanding Time on Monitor: 12/24/2018 17:32 Time off Monitor: 12/24/2018 19:15 NST Duration: 103 NST INTERVENTIONS NST Interventions: PO Hydration; Reposition Patient Physician Notified NST: Dr. Navarro BABY A: [id number] BABY A Movement : Present Contraction Frequency : 2-7 FHR Baseline : 135 Accelerations : 15X15 Decelerations : None Variability : Moderate 6-25bpm NST Review: Meets Criteria for Reactive NST NST Review and Verified By : María Elena Chaudhry RNC NST Results: Reactive NST REPORT Report Trigger: Send Report
== END 2018-12-24 19:21 | disposition home or self-care (01) ==
LOC: LC 17:14
PROVIDERS: ATTEND Obstetrics & Gynecology
PROC: 4A1HXCZ Monitoring of Products of Conception, Cardiac Rate, External Approach (ICD-10-PCS; principal; 2018-12-24)
DX: O47.1 False labor at or after 37 completed weeks of gestation (principal); Z3A.37 37 weeks gestation of pregnancy
CPT/HCPCS: 59025; 80307; 81005; 84112

== ENCOUNTER 2018-12-26 13:48 | Outpatient (CLI) | payer MEDICAID ==
[~2018-12-26 13:48] MED LIST changes: +NORMAL SALINE 250 ML IV PRN
[2018-12-26 14:14] VITALS: BP 110/63
== END 2018-12-26 14:49 | disposition home or self-care (01) ==
LOC: II 13:48 → 5TH 13:57 → II 14:49
PROVIDERS: ATTEND Midwife
PROC: 3E033GC Introduction of Other Therapeutic Substance into Peripheral Vein, Percutaneous Approach (ICD-10-PCS; principal; 2018-12-26)
DX: O99.019 Anemia complicating pregnancy, unspecified trimester (principal)
CPT/HCPCS: 96365; J7050; J1439

== ENCOUNTER 2018-12-29 08:40 | Outpatient (CLI) | payer MEDICAID ==
[2018-12-29 09:27] LABS: APPEARANCE,URINE CLEAR; BILIRUBIN,URINE NEGATIVE (NEGATIVE); COLOR,URINE STRAW; GLUCOSE, URINE NEGATIVE (NEGATIVE); KETONES,URINE NEGATIVE (NEGATIVE); LEUKOCYTE ESTERASE,URINE NEGATIVE (NEGATIVE); NITRITE,URINE NEGATIVE (NEGATIVE); PROTEIN,URINE NEGATIVE (NEGATIVE); URINE SPECIFIC GRAVITY 1.004; UROBILINOGEN,URINE NEGATIVE mg/dL (<2.0)
[2018-12-29 09:51] LABS: URINE AMPHETAMINES SCREEN NEGATIVE; URINE BARBITURATES SCREEN NEGATIVE; URINE BENZODIAZEPINES SCREEN NEGATIVE; URINE COCAINE SCREEN NEGATIVE; URINE MARIJUANA (THC) SCREEN NEGATIVE; URINE METHADONE SCREEN NEGATIVE; URINE PHENCYCLIDINE SCREEN NEGATIVE
[2018-12-29] MEDS ORDERED: HYDROXYZINE PAMOATE 50 MG CAPSULE PO ONE (10:44)
[2018-12-29] MEDS ORDERED: HYDROXYZINE PAMOATE 50 MG CAPSULE ONE (10:46)
== END 2018-12-29 10:40 | disposition home or self-care (01) ==
LOC: LC 08:40
PROVIDERS: ATTEND Obstetrics & Gynecology
PROC: 4A1HXCZ Monitoring of Products of Conception, Cardiac Rate, External Approach (ICD-10-PCS; principal; 2018-12-29)
DX: O47.1 False labor at or after 37 completed weeks of gestation (principal); O98.513 Other viral diseases complicating pregnancy, third trimester; B00.9 Herpesviral infection, unspecified; Z79.899 Other long term (current) drug therapy; Z3A.38 38 weeks gestation of pregnancy
CPT/HCPCS: 59025; 81005; 80307; 84112; J3490

== ENCOUNTER 2019-01-02 21:42 | Outpatient (CLI) | payer MEDICAID ==
[2019-01-02 22:05] LABS: APPEARANCE,URINE CLOUDY; BILIRUBIN,URINE NEGATIVE (NEGATIVE); COLOR,URINE YELLOW; GLUCOSE, URINE NEGATIVE (NEGATIVE); KETONES,URINE NEGATIVE (NEGATIVE); LEUKOCYTE ESTERASE,URINE MODERATE (NEGATIVE); NITRITE,URINE NEGATIVE (NEGATIVE); PROTEIN,URINE NEGATIVE (NEGATIVE); URINE SPECIFIC GRAVITY 1.011; UROBILINOGEN,URINE NEGATIVE mg/dL (<2.0)
[2019-01-02 22:22] LABS: URINE AMPHETAMINES SCREEN NEGATIVE; URINE BARBITURATES SCREEN NEGATIVE; URINE BENZODIAZEPINES SCREEN NEGATIVE; URINE COCAINE SCREEN NEGATIVE; URINE MARIJUANA (THC) SCREEN NEGATIVE; URINE METHADONE SCREEN NEGATIVE; URINE PHENCYCLIDINE SCREEN NEGATIVE
[2019-01-03] MEDS ORDERED: HYDROXYZINE PAMOATE 50 MG CAPSULE PO ONE (00:07)
[2019-01-03] MEDS ORDERED: HYDROXYZINE PAMOATE 50 MG CAPSULE ONE (00:09)
--- NOTE | 2019-01-03 00:32 | Non Stress Test Report ---
Non Stress Test Datetime Report Generated by CPN: 01/03/2019 00:32 DEMOGRAPHIC EGA NST: 39.1 INDICATION Indication for Study (NST) Other: LC URINE RESULTS Urine Protein, NST: Negative Urine Ketones - NST: Negative Urine Glucose - NST: Negative Urine Blood - NST: Negative MONITORING Monitor Explained: Monitor Explained; Test Explained; Patient Verbalized Understanding Time on Monitor: 01/02/2019 21:59 Time off Monitor: 01/02/2019 23:00 NST Duration: 61 NST INTERVENTIONS NST Interventions: PO Hydration Physician Notified NST: Dr. Navarro BABY A: [id number] BABY A Movement : Present Contraction Frequency : 4-8 FHR Baseline : 125 Accelerations : 15X15 Decelerations : None Variability : Moderate 6-25bpm NST Review: Meets Criteria for Reactive NST NST Review and Verified By : tika NST Results: Reactive NST REPORT Report Trigger: Send Report
== END 2019-01-03 00:19 | disposition home or self-care (01) ==
LOC: LC 21:42
PROVIDERS: ATTEND Obstetrics & Gynecology
PROC: 4A1HXCZ Monitoring of Products of Conception, Cardiac Rate, External Approach (ICD-10-PCS; principal; 2019-01-02)
DX: O47.1 False labor at or after 37 completed weeks of gestation (principal); O26.893 Other specified pregnancy related conditions, third trimester; R10.9 Unspecified abdominal pain; Z3A.39 39 weeks gestation of pregnancy
CPT/HCPCS: 59025; 81005; 80307; J3490

== ENCOUNTER 2019-01-03 06:00 | Inpatient (IN) | payer MEDICAID ==
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
[2019-01-03] MEDS: RINGERS SOLUTION,LACTATED 1,000 ML IV PRN ×2 (06:40→07:01)
[2019-01-03] MEDS ORDERED: MISOPROSTOL 0.2 MG TABLET ONE (06:54)
[2019-01-03] MEDS ORDERED: OXYTOCIN 10 UNIT/ML VIAL ONE (06:54)
[2019-01-03] MEDS ORDERED: OXYTOCIN/NORMAL SALINE 20 UNIT/1,000 ML RTUINJ ONE (06:54)
[2019-01-03] MEDS ORDERED: LIDOCAINE 1% INJ-PF (10 MG/ML) 30 ML SDV ONE (06:54)
[2019-01-03] MEDS ORDERED: FENTANYL/BUPIVACAINE/NS/PF 0 MCG/0 ML RTUINJ EPI ONE (07:05)
[2019-01-03] MEDS ORDERED: BUPIVACAINE HCL 0.25 % INJ/PF (2.5 MG/1 ML) 30 ML VIAL ONE (07:05)
[2019-01-03] MEDS ORDERED: EPHEDRINE SULFATE INJ 50 MG/1 ML AMPULE ONE (07:05)
[2019-01-03 07:16] LABS: ABSOLUTE EOSINOPHILS # (AUTO) 0.1 10^3/uL (0.0-0.6); ABSOLUTE LYMPHOCYTES (AUTO) 1.9 10^3/uL (0.5-4.7); ABSOLUTE MONOCYTES (AUTO) 0.8 10^3/uL (0.1-1.4); ABSOLUTE NEUT (AUTO) 6.1 10^3/uL (1.7-8.2); BASOPHILS % (AUTO) 0.3 % (0-2); HEMOGLOBIN 9.5 g/dL (12.0-15.5); LYMPHOCYTES % (AUTO) 21.5 % (13-45); MEAN CORPUSCULAR HEMOGLOBIN 25.1 pg (27.0-33.4); MEAN CORPUSCULAR HGB CONC 32.7 g/dL (32.0-36.0); MEAN CORPUSCULAR VOLUME 77 fl (80-97); PLATELET COUNT 229 10^3/uL (150-450); RED BLOOD COUNT 3.78 10^6/uL (3.72-5.28); RED CELL DISTRIBUTION WIDTH 28.6 % (11.5-14.0); SEGMENTED NEUTROPHILS % (AUTO) 68.2 % (42-78); TOTAL CELLS COUNTED % (AUTO) 100 %; WHITE BLOOD COUNT 8.9 10^3/uL (4.0-10.5)
[2019-01-03] MEDS ORDERED: ONDANSETRON HCL INJ/PF 4 MG/2 ML SDV ONE (07:25)
[2019-01-03 07:55] LABS: TOXIC GRANULATION SLIGHT
[2019-01-03 07:56] LABS: ANISOCYTOSIS 4+; HYPOCHROMASIA SLIGHT; OVALOCYTES 1+; PLATELET COMMENT ADEQUATE; POIKILOCYTOSIS 2+; TEAR DROP CELLS 1+
[2019-01-03] MEDS ORDERED: KETOROLAC TROMETHAMINE INJ/PF 30 MG/1 ML SDV ONE (08:25)
[2019-01-03] MEDS ORDERED: BENZOCAINE/MENTHOL AEROSOL SPRAY 56 ML TOP PRN (09:39)
[2019-01-03] MEDS ORDERED: MEASLES,MUMPS&RUBELLA VACC/PF 0.5 ML VIAL SUBCUT PRN (09:39)
[2019-01-03] MEDS ORDERED: ACETAMINOPHEN WITH CODEINE #3 TABLET PO PRN ×2 (09:39)
[2019-01-03] MEDS ORDERED: ZOLPIDEM TARTRATE 5 MG TABLET PO PRN (09:39)
[2019-01-03] MEDS ORDERED: DIBUCAINE 1% OINTMENT 56 GM TP PRN (09:39)
[2019-01-03] MEDS ORDERED: OXYTOCIN/NORMAL SALINE 20 UNIT/1,000 ML RTUINJ IV PRN (09:39)
[2019-01-03] MEDS ORDERED: DIPH/PERTUSS(ACELL)/TETANUS VAC/PF 0.5 ML SYR (>=10YO) IM PRN (09:39)
--- NOTE | 2019-01-03 09:45 | PDOC PROGRESS REPORT ---
Subjective-OB Progress Note for:: 01/03/19 Subjective: As pt has hx of HSV on Valtrex with no prodromal symptoms but no Speculum exam performed in labor. Did a bedside speculum exam at 0935 on 03 Jan 2019. External genitalia without lesions. Inspected mons, labia, perineum, vaginal introitus. Speculum placed. No lesions appreciated in the vagina. The anterior cervix demonstrated no lesions. Unable to fully visualize the posterior cul de sac but no areas of concern noted. A/P approximately 1 hour ago. Discussed with NICU. Ordered Stat HSV IgG and IgM Type 1 and 2. Completed exam of external and internal genitalia with no visible lesions at this time. Pt reports no prodromal symptoms. MD Homar Physical Exam (OB) Vital Signs: Intake & Output 01/02/19 01/03/19 01/04/19 06:59 06:59 06:59 Intake Total 44 Balance 44 Weight 64 kg Objective-Diagnostic Laboratory: 01/03/19 06:54 01/03/19 01/03/19 06:54 06:54 WBC 8.9 RBC 3.78 Hgb 9.5 L Hct 29.0 L MCV 77 L MCH 25.1 L MCHC 32.7 RDW 28.6 H Plt Count 229 Seg Neutrophils % 68.2 Lymphocytes % 21.5 Monocytes % 9.0 Eosinophils % 1.0 Basophils % 0.3 Absolute Neutrophils 6.1 Absolute Lymphocytes 1.9 Absolute Monocytes 0.8 Absolute Eosinophils 0.1 Absolute Basophils 0.0 Blood Type A POSITIVE Antibody Screen NEGATIVE
[2019-01-03] MEDS ORDERED: ACETAMINOPHEN WITH CODEINE #3 TABLET ONE (10:21)
[2019-01-03] MEDS ORDERED: PRENATAL VITAMIN W DHA CAPSULE PO ONE (10:26)
[2019-01-03] MEDS ORDERED: DOCUSATE SODIUM 100 MG CAPSULE ONE (10:26)
[2019-01-03] MEDS ORDERED: SENNOSIDES/DOCUSATE 8.6-50 MG 1 EACH TABLET ONE (10:26)
[2019-01-03] MEDS ORDERED: FERROUS SULFATE 325 MG TABLET PO ONE (10:27)
[2019-01-03] MEDS: PRENATAL VITAMIN W DHA CAPSULE PO SCH (10:28)
[2019-01-03] MEDS: DOCUSATE SODIUM 100 MG CAPSULE PO SCH ×2 (10:28→17:21)
[2019-01-03] MEDS: SENNOSIDES/DOCUSATE 8.6-50 MG 1 EACH TABLET PO SCH (10:29)
[2019-01-03] MEDS: FERROUS SULFATE 325 MG TABLET PO SCH ×2 (10:29→17:21)
--- NOTE | 2019-01-03 10:38 | Delivery Summary ---
Del Sum A-C Datetime Report Generated by CPN: 01/03/2019 10:38 DELIVERY PERSONNEL DELIVERY PERSONNEL: [id number] Delivery Doctor:: Josefina Graf MD Labor and Delivery Nurse:: Joanne Fletcher RNawning installer Nurse:: Arun Florian RN Gear Milling Machine Set Up Operator/PROGRAMMING DEVELOPMENT PROJECT MANAGER: Alecia Blackmon RADAR SCIENTIST Additional Personnel: : Chiquita Puga RN MATERNAL INFORMATION Delivery Anesthesia: None Medications After Delivery: Other-Please Comment Meds After Delivery Comment: Pitocin bolus 20 units/1000 ml NS Delivery QBL Comment: 200 Maternal Complications: None Provider Comments: Arrived in the room and patient was c/c and pushing. Unmedicated delivery. Meconium stained fluid noted. Cat I tracing. With great maternal effort head delivered OA over intact perineum. Restituted ROT, no nuchal cord noted. With gentle downward pressure left anterior shoulder delivered. With gentle upward pressure right posterior shoulder and body delivered. with spontaneous cry placed on maternal abdomen. After two minutes cord clamped x2 and cut by FOB. With gentle downward pressure intact placenta with 3VC delivered. Pitocin started and fundus massaged to firm. Inspection of cervix and vagina showed no lacerations. No sharps or sponges used during delivery. EBL 200. Mother and baby in stable condition when provider left room. When returned to start charting noted mother was on valcyclovir for HSV and last outbreak was 11/20/2018. No speculum exam completed prior to delivery. I talked to mother and she reports that she has been on valcyclovir since 36 weeks. Taking daily and not missing doses. No outbreak since early November. Reports no prodromal symptoms (burning/itching) in the last few days. Discussed with pediatrics. LABOR SUMMARY EDC: 01/08/2019 00:00 No. Babies in Womb: 1 Attempted: Yes Labor Anesthesia: None LABOR INFORMATION Reason for Induction: Not Applicable Onset of Labor: 01/03/2019 05:30 Complete Dilatation: 01/03/2019 07:57 Oxytocin: N/A Group B Beta Strep: negative Antibiotics # of Doses: 0 Steroids Given: None Reason Steroids Not Administered: Not Applicable MEMBRANES Membranes Rupture Method: Spontaneous Rupture of Membranes: 01/03/2019 05:30 Length of Rupture (hr): 2.72 Amniotic Fluid Color: Clear Amniotic Fluid Amount: Small Amniotic Fluid Odor: Normal STAGES OF LABOR Stage 1 hr: 2 Stage 1 min: 27 Stage 2 hr: 0 Stage 2 min: 16 Stage 3 hr: 0 Stage 3 min: 7 Total Time in Labor hr: 2 Total Time in Labor min: 50 VAGINAL DELIVERY Episiotomy: None Laceration #1: None Laceration Extension #1: N/A Laceration Repair: Not Applicable Laceration Repair Note: No lacerations or abrasions noted Sponge Count Correct: Yes Sharps Count Correct: Yes Count Comment: No sharps or sponges were used in delivery. CSECTION DELIVERY Primary Indication: N/A Secondary Indication: N/A CSection Incidence: N/A Labor: N/A Elective: N/A CSection Incision: N/A BABY A INFORMATION Infant Delivery Date/Time: 01/03/2019 08:13 Method of Delivery: Vaginal Born in Route : No : N/A Forceps: N/A Vacuum Extraction: N/A Shoulder Dystocia : No PRESENTATION/POSITION BABY A Presentation: Cephalic Cephalic Presentation: Vertex Vertex Position: Right Occipital Transverse Breech Presentation: N/A PLACENTA INFORMATION BABY A Placenta Delivery Time : 01/03/2019 08:20 Placenta Method of Delivery: Spontaneous Placenta Status: Delivered SCORES BABY A Heart Rate 1 min: >100 bpm Resp Effort 1 min: Good Cry Reflex Irritability 1 min: Cough or Sneeze or Pulls Away Muscle Tone 1 min: Active Motion Color 1 min: Blue/Pale Resuscitation Effort 1 min: Tactile Stimulation SCORE 1 MIN: 8 Heart Rate 5 min: >100 bpm Resp Effort 5 min: Good Cry Reflex Irritability 5 min: Cough or Sneeze or Pulls Away Muscle Tone 5 min: Active Motion Color 5 min: Completely [place] Resuscitation Effort 5 min: Tactile Stimulation SCORE 5 MIN: 10 INFANT INFORMATION BABY A Gestational Age at Delivery: 39.2 Gestational Status: Full Term- 39- 40.6 Weeks Infant Outcome : Liveborn Infant Condition : Stable Infant Sex: Female IDENTIFICATION BABY A Infant Verification Date/Time: 01/03/2019 08:38 ID Band Number: [id number] Mother's Name Verified: Yes Infant RN Verifying Infant: uLla NIURKA Puga and Arun Green RN WEIGHT/LENGTH BABY A Infant Birthweight (gm): 3072 Weight (lb): 6 Weight (oz): 12 Infant Length (in): 19.75 Length (cm): 50.17 CORD INFORMATION BABY A No. Cord Vessels: 3 Nuchal Cord : N/A Cord Blood Taken: Yes-For Storage (Mom's Blood type +) Infant Suction: None ASSESSMENT BABY A Complications: Multiple Variable Decels; Meconium Physical Findings at Delivery: Within Normal Limits Respirations: Appears Normal Skin to Skin: Yes Continuous Pillowcase Cutter/ALS Called : No Infant Care By: Lula Puga RN Transferred To: Remains with Mother SIGNATURES Signature: with User ID: [email or web address]
--- NOTE | 2019-01-03 13:05 | Warning Signs in Babies ---
VOD Warning Signs Datetime Report Generated by [facility]: 01/03/2019 13:05 VOD#[id number] -Warning Signs in Babies: Viewed with Parent(s)/Family (01/03/2019 13:04:Brooke Green RN)
[2019-01-03] MEDS: IBUPROFEN 800 MG TABLET PO SCH (21:56)
[2019-01-04] MEDS: IBUPROFEN 800 MG TABLET PO SCH ×3 (05:55→21:08)
[2019-01-04 07:45] LABS: HEMOGLOBIN 10.4 g/dL (12.0-15.5); MEAN CORPUSCULAR HEMOGLOBIN 24.9 pg (27.0-33.4); MEAN CORPUSCULAR HGB CONC 32.4 g/dL (32.0-36.0); MEAN CORPUSCULAR VOLUME 77 fl (80-97); PLATELET COUNT 253 10^3/uL (150-450); RED BLOOD COUNT 4.16 10^6/uL (3.72-5.28); WHITE BLOOD COUNT 8.9 10^3/uL (4.0-10.5)
--- NOTE | 2019-01-04 10:18 | PDOC PROGRESS REPORT ---
Subjective-OB Progress Note for:: 01/04/19 - PP Day #1, doing well, A+ Rubella Immune, bottlefeeding Physical Exam (OB) Vital Signs: Temp Pulse Resp BP Pulse Ox 97.7 F 66 14 103/70 99 01/04/19 07:56 01/04/19 07:56 01/04/19 07:56 01/04/19 07:56 01/04/19 07:56 Intake & Output 01/03/19 01/04/19 01/05/19 06:59 06:59 06:59 Intake Total 44 Balance 44 Weight 64 kg - General General Appearance: Appears well, Alert - PIH/Pre-Eclampsia Clonus: Negative Headache: Absent Epigastric Pain: No Visual Changes: No - Dressing Removed: Yes - Abdomen Description: Tender Fundal Description: Firm, Midline Fundal Height: u/u - u/2 - Respiratory Respiratory Status: No respiratory distress - Abdominal Distension: No distension Tenderness: Nontender - Genitourinary Genitourinary Note: voiding - Extremities Upper extremity: Normal inspection Lower extremities: Normal inspection - Neurological Cognition: Normal Orientation: AAOx4 - Psychological Associated symptoms: Normal affect, Normal mood - Skin Skin Temperature: Warm Skin Moisture: Dry Objective-Diagnostic Laboratory: 01/04/19 07:30 01/04/19 07:30 WBC 8.9 RBC 4.16 Hgb 10.4 L Hct 32.0 L MCV 77 L MCH 24.9 L MCHC 32.4 RDW 29.0 H Plt Count 253 Assessment and Plan(PN) - Assessment and Plan (1) (normal spontaneous vaginal delivery) Is this a current diagnosis for this admission?: Yes (2) Normal course Is this a current diagnosis for this admission?: Yes - Time Spent with Patient Time with patient: Less than 15 minutes Medications reviewed and adjusted accordingly: Yes - Disposition Anticipated Discharge: Home Within: within 24 hours
[2019-01-04] MEDS: PRENATAL VITAMIN W DHA CAPSULE PO SCH (10:47)
[2019-01-04] MEDS: SENNOSIDES/DOCUSATE 8.6-50 MG 1 EACH TABLET PO SCH (10:47)
[2019-01-04] MEDS: FERROUS SULFATE 325 MG TABLET PO SCH ×2 (10:47→18:48)
[2019-01-04] MEDS: DOCUSATE SODIUM 100 MG CAPSULE PO SCH ×2 (10:47→18:48)
[2019-01-05] MEDS: IBUPROFEN 800 MG TABLET PO SCH ×2 (05:40→13:30)
[2019-01-05 09:04] VITALS: BP 102/65
--- NOTE | 2019-01-05 09:24 | PDOC DISCHARGE SUMMARY ---
Final Diagnosis Discharge Date: 01/05/19 - Final Diagnosis (1) (normal spontaneous vaginal delivery) Is this a current diagnosis for this admission?: Yes (2) Normal course Is this a current diagnosis for this admission?: Yes Discharge Data - Discharge Medication Home Medications: Vit No.130/Iron/Folic [ Vitamins] 1 each PO DAILY 12/24/18 Valacyclovir HCl [Valtrex 500 Mg Tablet] 500 mg PO DAILY 12/24/18 Reason(s) for Admission: Onset of Labor Procedures: NST Intrapartum Procedure(s): Spontaneous Vaginal Delivery - Diagnosis Test Laboratory: Temp Pulse Resp BP Pulse Ox 98.2 F 72 16 102/65 99 01/05/19 09:02 01/05/19 09:02 01/05/19 09:02 01/05/19 09:02 01/05/19 09:02 01/03/19 01/04/19 06:54 07:30 RBC 3.78 4.16 Hgb 9.5 L 10.4 L Hct 29.0 L 32.0 L - Discharge information/Instructions Discharge Activity: Activity As Tolerated, Pelvic Rest Discharge Diet: Regular Disposition: HOME, SELF-CARE Follow up with: [facility] in: 4, Weeks
[2019-01-05] MEDS: FERROUS SULFATE 325 MG TABLET PO SCH ×2 (10:12→17:45)
[2019-01-05] MEDS: PRENATAL VITAMIN W DHA CAPSULE PO SCH (10:12)
[2019-01-05] MEDS: SENNOSIDES/DOCUSATE 8.6-50 MG 1 EACH TABLET PO SCH (10:12)
[2019-01-05] MEDS: DOCUSATE SODIUM 100 MG CAPSULE PO SCH ×2 (10:12→17:45)
[2019-01-06 08:46] LABS: HSV-I IGG AB <0.91 index (0.00-0.90)
== END 2019-01-05 19:00 | disposition home or self-care (01) | DRG 806 ==
LOC: LC 06:00 → LR 06:13 → 2S 15:06
PROVIDERS: ADMIT Obstetrics & Gynecology; ATTEND Obstetrics & Gynecology
PROC: 10E0XZZ Delivery of Products of Conception, External Approach (ICD-10-PCS; principal; 2019-01-03)
DX: O42.92 Full-term premature rupture of membranes, unspecified as to length of time between rupture and onset of labor (principal); O98.513 Other viral diseases complicating pregnancy, third trimester; Z37.0 Single live birth; B00.9 Herpesviral infection, unspecified; Z3A.39 39 weeks gestation of pregnancy; O76 Abnormality in fetal heart rate and rhythm complicating labor and delivery; O77.0 Labor and delivery complicated by meconium in amniotic fluid
CPT/HCPCS: 36415; 85025; 85027; 86592; 86695; 86850; 86900; 86901; J1885; J2405; J2590; J3010; J3490